=== PATIENT | male | born 1975 | race Caucasian/White ===

== ENCOUNTER → 2020-08-22 | Outpatient (CLI) | payer OTHER ==
[2020-08-22 14:34] LABS: BASO % 0.6 % (0.0-2.0); EOS # 0.1 (0.0-0.7); EOS % 1.9 % (0-4.0); GRAN # 2.8 (1.4-6.5); GRAN % 54.7 % (42.2-75.2); HEMATOCRIT 43.8 % (42.0-52.0); HEMOGLOBIN 14.6 g/dl (13.5-18.0); LYMPH # 1.8 (1.2-3.4); LYMPH % 34.9 % (20.0-51.0); MEAN CELL VOLUME 90 fl (80.0-100.0); MEAN CORPUSCULAR HEMOGLOBIN 30 pg (27.0-31.0); MEAN CORPUSCULAR HGB CONC 33 g/dl (33.0-37.0); MEAN PLATELET VOLUME 9.7 fl (7.4-10.4); MONO # 0.4 (0.1-0.6); MONO % 7.7 % (1.7-9.3); PLATELET COUNT 326 K/mm3 (130-400); RED BLOOD COUNT 4.88 M/mm3 (4.20-5.60); REDCELL DISTRIBUTION WIDTH-CV 12.4 % (11.5-14.5)
[2020-08-22 14:43] LABS: ALANINE AMINOTRANSFERASE 22 U/L (4-49); ALBUMIN 4.8 gm/dL (3.5-5.0); ALKALINE PHOSPHATASE 65 U/L (50-136); ANION GAP 11 mmol/L (7-16); AST,SGOT 35 U/L (15-37); BILIRUBIN,TOTAL 1.2 mg/dL (0.0-1.0); BLOOD UREA NITROGEN 16 mg/dL (9-20); CALCIUM 9.7 mg/dL (8.4-10.2); CARBON DIOXIDE 26 mmol/L (22-30); CHLORIDE 102 mmol/L (98-107); CREATININE, serum 1.06 (0.66-1.25); GLUCOSE 100 mg/dL (74-106); SODIUM 139 mmol/L (137-145); TOTAL PROTEIN 7.7 gm/dL (6.4-8.2)
[2020-08-22 14:44] LABS: C-REACTIVE PROTEIN < 0.5 mg/dL (0.0-0.9)
[2020-08-22 14:56] LABS: ERYTHROCYTE SEDIMENTATION RATE 1 mm/hr (0-15)
== END ==
LOC: ZCOL.LAB 14:24
PROVIDERS: Orthopaedic Surgery
DX: I77.6 Arteritis, unspecified (principal); J02.9 Acute pharyngitis, unspecified

== ENCOUNTER 2021-04-21 15:11 | Day surgery (SDC) | payer OTHER ==
[~2021-04-21] VITALS: Ht 190.5 cm; Wt 88.5 kg
[2021-04-21 15:53] VITALS: BP 124/75; PULSE 64; TEMP 97.9
[2021-04-21] MEDS ORDERED: ALLEGRA ALLERG180 MG PO (16:05)
[2021-04-21] MEDS ORDERED: DEXILANT60 MG PO (16:06)
[2021-04-21 16:45] VITALS: BP 115/78; PULSE 71
--- NOTE | 2021-04-21 16:45 | NUR ---
Pt returns to [facility], awakens easily and transfers to recliner without difficulty, VSS, denies pain or nausea. Given sprite to drink. Dr. Kingston at bedside talking with pt and his .
[2021-04-21 17:00] VITALS: BP 120/86; PULSE 64
--- NOTE | 2021-04-21 17:03 | NUR ---
Pt wanting to go home, discharge instructions provided to pt and his . IV discontinued and pt dresses, taken out via wheelchair by ERASMO Crump at 1705.
[2021-04-21 17:18] VITALS: BP 115/78; PULSE 68
== END 2021-04-21 17:05 | disposition home or self-care (01) ==
LOC: SDCO 15:11
DX: K29.50 Unspecified chronic gastritis without bleeding (principal); K62.5 Hemorrhage of anus and rectum; K29.00 Acute gastritis without bleeding; Z79.899 Other long term (current) drug therapy; Z90.89 Acquired absence of other organs; Z20.822 Contact with and (suspected) exposure to COVID-19; Z80.3 Family history of malignant neoplasm of breast
CPT/HCPCS: J2704; J7030